=== PATIENT | female | born 1935 | race Asian ===

== ENCOUNTER 2018-08-12 12:44 | Emergency (ER) | payer MEDICARE, OTHER ==
[~2018-08-12] VITALS: Ht 152.4 cm; Wt 56.2 kg
[~2018-08-12 12:44] MED LIST: ATOR20TA38 PO; CARV6.2579 PO; LISI40TA3 PO; OMEP20CA16 PO
[2018-08-12 13:10] VITALS: Ht 152.4 cm; Wt 56.2 kg
--- NOTE | 2018-08-12 13:51 | ERD ---
ER Documentation Chief Complaint Chief Complaint vomitting, diarhea since HPI The patient is a 82-year-old female, presenting to the ER because of vomiting diarrhea for the last 4 days, his fever, chills, neck pain, chest pain, complains of minimal epigastric abdominal discomfort, denies any lower abdominal pain, denies dysuria, hematuria. She does not smoke nor drink Past medical history: Hypertension, dyslipidemia, hypertension, anemia, gout Past surgical history: Hysterectomy, ROS All systems reviewed and are negative except as per history of present illness. Medications Home Meds Active Scripts Ondansetron (Ondansetron Odt) 4 Mg Tab.rapdis, 4 MG PO Q6H PRN for NAUSEA AND/OR VOMITING, #10 TAB Prov:ALFA REYNOSO MD 08/12/18 Cephalexin* (Keflex*) 500 Mg Capsule, 500 MG PO Q6, #28 CAP Prov:ALFA REYNOSO MD 08/12/18 Reported Medications Ferrous Sulfate* (Ferrous Sulfate*) 325 Mg Tabec, 325 MG PO DAILY, TAB 08/12/18 Hydrochlorothiazide* (Hydrochlorothiazide*) 25 Mg Tab, 25 MG PO DAILY, #30 TAB 08/12/18 Allopurinol* (Allopurinol*) 100 Mg Tablet, 100 MG PO DAILY, TAB 08/12/18 Colchicine* (Colcrys*) 0.6 Mg Tablet, 0.6 MG PO Q6H PRN for NEEDED, TAB 08/12/18 Lisinopril* (Lisinopril*) 40 Mg Tablet, 40 MG PO BID, #30 TAB 08/12/18 Carvedilol* (Carvedilol*) 6.25 Mg Tablet, 6.25 MG PO BID, #60 TAB 08/12/18 Atorvastatin Calcium* (Atorvastatin Calcium*) 20 Mg Tablet, 20 MG PO QHS, #30 TAB 08/12/18 Discontinued Reported Medications Carvedilol* (Carvedilol*) 6.25 Mg Tablet, 6.25 MG PO BID, TAB 08/09/14 Atorvastatin Calcium* (Atorvastatin Calcium*) 20 Mg Tablet, 20 MG PO HS, TAB 08/09/14 Omeprazole* (Omeprazole*) 20 Mg Capsule.dr, 20 MG PO DAILY, CAP 08/09/14 Lisinopril* (Lisinopril*) 40 Mg Tablet, 40 MG PO DAILY, TAB 08/09/14 Allergies Allergies: Coded Allergies: No Known Allergy (Unverified , 08/12/18) PMhx/Soc History of Surgery: Yes ( 1970, hysterectomy- 1983) Anesthesia Reaction: No Hx Neurological Disorder: No Hx Respiratory Disorders: No Hx Cardiac Disorders: Yes (HTN hyerlipidemia) Hx Psychiatric Problems: No Hx Miscellaneous Medical Probl: Yes (Anemia, Gout) Hx Alcohol Use: No Hx Substance Use: No Hx Tobacco Use: No Physical Exam Vitals Vital Signs Date Temp Pulse Resp B/P (MAP) Pulse Ox O2 O2 Flow FiO2 Time Delivery Rate 08/12/18 62 16 122/66 99 Room Air 15:44 (84) 08/12/18 97.0 80 18 151/72 98 13:10 (98) Physical Exam Const: No acute distress. Head: Atraumatic. Eyes: Normal Conjunctiva. ENT: Normal External Ears, Nose and Mouth. Neck: Full range of motion. No meningismus. Resp: Clear to auscultation bilaterally. Cardio: Regular rate and rhythm. Abd: Soft, non distended, normal bowel sounds, non tender. Skin: No petechiae or rashes. Back: No midline or flank tenderness. Ext: No cyanosis, or edema. Neur: Awake and alert. No focal deficit Psych: Normal Mood and Affect. Result Diagram: 08/12/18 1407 08/12/18 1407 Results 24 hrs Laboratory Tests Test 08/12/18 14:07 08/12/18 14:17 White Blood Count 8.2 10^3/ul Red Blood Count 3.56 10^6/ul Hemoglobin 10.7 g/dl Hematocrit 32.8 % Mean Corpuscular Volume 92.1 fl Mean Corpuscular Hemoglobin 30.1 pg Mean Corpuscular Hemoglobin Concent 32.6 g/dl Red Cell Distribution Width 14.3 % Platelet Count 225 10^3/UL Mean Platelet Volume 10.3 fl Immature Granulocytes % 0.100 % Neutrophils % 55.9 % Lymphocytes % 32.2 % Monocytes % 9.8 % Eosinophils % 1.6 % Basophils % 0.4 % Nucleated Red Blood Cells % 0.0 /100WBC Immature Granulocytes # 0.010 10^3/ul Neutrophils # 4.6 10^3/ul Lymphocytes # 2.6 10^3/ul Monocytes # 0.8 10^3/ul Eosinophils # 0.1 10^3/ul Basophils # 0.0 10^3/ul Nucleated Red Blood Cells # 0.0 10^3/ul Sodium Level 133 mmol/L Potassium Level 4.1 mmol/L Chloride Level 98 mmol/L Carbon Dioxide Level 26 mmol/L Anion Gap 9 Blood Urea Nitrogen 32 mg/dl Creatinine 1.33 mg/dl Est Glomerular Filtrat Rate mL/min mL/min Glucose Level 96 mg/dl Calcium Level 9.9 mg/dl Total Bilirubin 0.3 mg/dl Direct Bilirubin 0.00 mg/dl Indirect Bilirubin 0.3 mg/dl Aspartate Amino Transf (AST/SGOT) 28 IU/L Alanine Aminotransferase (ALT/SGPT) 11 IU/L Alkaline Phosphatase 59 IU/L Total Protein 8.5 g/dl Albumin 4.6 g/dl Globulin 3.90 g/dl Albumin/Globulin Ratio 1.17 Lipase 179 U/L Bedside Urine pH (LAB) 5.5 Bedside Urine Protein (LAB) Negative Bedside Urine Glucose (UA) Negative Bedside Urine Ketones (LAB) Negative Bedside Urine Blood Negative Bedside Urine Nitrite (LAB) Positive Bedside Urine Leukocyte Esterase (L Negative Current Medications Medications Dose Sig/Pat Start Time Status Last (Trade) Ordered Route PRN Stop Time Admin Dose Reason Admin Ceftriaxone 50 ml @ ONCE ONCE 08/12/18 DC 08/12/18 Sodium 100 mls/hr IVPB 15:30 15:35 08/12/18 15:59 Sodium 500 ml @ Q1H ONCE 08/12/18 08/12/18 Chloride 500 mls/hr IV 15:30 15:35 08/12/18 16:29 Procedures/MDM MEDICAL MAKING DECISION: The patient is a 82-year-old female, presenting with acute cystitis, acute dehydration, was treated with Rocephin 1 g IV for acute cystitis, normal saline 400 mg IV for acute dehydration with good response, is stable for outpatient follow-up The differential diagnoses considered include but are not limited to cholelithiasis, cholecystitis, choledocholithiasis, cholangitis, pancreatitis, hepatitis, gastritis, peptic ulcer disease, gastric ulcer, appendicitis, cystitis, diverticulitis, partial small bowel obstruction. Departure Diagnosis: Primary Impression: UTI (urinary tract infection) Additional Impressions: Dehydration Anemia Condition: Good Comments She was discharged with Keflex and Zofran I discussed the findings with the patient. I advised the patient to follow-up with the primary physician in about 2-3 days, sooner if needed and return if any concern. Disclaimer: Inadvertent spelling and grammatical errors are likely due to EHR/dictation software use and do not reflect on the overall quality of patient care. Also, please note that the electronic time recorded on this note does not necessarily reflect the actual time of the patient encounter. ALFA REYNOSO MD Aug 12, 2018 13:51
[2018-08-12] MEDS ORDERED: CEPH-443 PO (15:19)
[2018-08-12] MEDS ORDERED: ONDA4TAB14 PO (15:21)
[2018-08-12] MEDS ORDERED: ATOR20TA38 PO (15:25)
[2018-08-12] MEDS ORDERED: CARV6.2579 PO (15:25)
[2018-08-12] MEDS ORDERED: LISI40TA3 PO (15:25)
[2018-08-12] MEDS ORDERED: HYDR25TA6 PO (15:26)
[2018-08-12] MEDS ORDERED: COLC0.6T6 PO (15:26)
[2018-08-12] MEDS ORDERED: ALLO100T PO (15:26)
[2018-08-12] MEDS ORDERED: FER325 PO (15:27)
[2018-08-12] MEDS ORDERED: CEFTRIAXONE 1 GM/50 ML (PMX) 50 ML IVPB ONE (15:30)
[2018-08-12] MEDS ORDERED: SOD CHLORIDE 0.9% 500 ML IV ONE (15:30)
[2018-08-12 16:45] VITALS: BP 132/71; PULSE 66; RESP 16
== END 2018-08-12 16:47 | disposition home or self-care (01) ==
LOC: E/R 12:44
DX: N39.0 Urinary tract infection, site not specified (principal); E86.0 Dehydration; D64.9 Anemia, unspecified; I10 Essential (primary) hypertension
CPT/HCPCS: 36415; 80053; 81003; 83690; 85025; 96361; 96365; 99284; J0696; J7040